=== PATIENT | male | born 1960 | race Caucasian/White ===

== ENCOUNTER 2025-01-06 00:58 | Emergency (ER) | payer OTHER ==
[2025-01-06 01:39] LABS: Basophils # (A) 0.1 k/uL (0-0.2); Basophils % (A) 1 %; Eosinophils # (A) 0.4 k/uL (0-0.7); Eosinophils % (A) 5 %; HCT 38.6 % (39.0-53.0); HGB 12.3 gm/dL (13.0-17.5); Lymphocytes # (A) 2.4 k/uL (1.0-4.8); Lymphocytes % (A) 35 %; MCH 31.2 pg (25.0-35.0); MCHC 31.9 g/dL (31.0-37.0); MCV 97.9 fL (80.0-100.0); Monocytes # (A) 0.3 k/uL (0-1.0); Monocytes % (A) 5 %; Neutrophils # (A) 3.8 k/uL (1.3-7.7); Neutrophils % (A) 54 %; Platelet Count 164 k/uL (150-450); RBC 3.94 m/uL (4.30-5.90); RDW 13.5 % (11.5-15.5)
--- NOTE | 2025-01-06 02:20 | ED ---
Altered Mental Status HPI - General Chief Complaint: Altered Mental Status Stated Complaint: Detox Time Seen by Provider: 01/06/25 02:08 Source: EMS, RN notes reviewed, old records reviewed Mode of arrival: EMS Limitations: no limitations - History of Present Illness Initial Comments: This is a 64-year-old male to the ER for evaluation today. Patient presents today for evaluation regards to some altered mental status and confusion noted for being evaluated from [facility] for possible worsening confusion, going to alcohol intoxication MD Complaint: altered mental status, confusion -: hour(s) Severity: moderate Consistency of Symptoms: getting worse Context: alcohol abuse Associated Symptoms: denies other symptoms Treatments Prior to Arrival: IV fluid - Related Data Home Medications Medication Instructions Recorded Confirmed Albuterol Sulfate [Ventolin HFA] 2 puff INHALATION RT-Q4H PRN 01/08/25 01/08/25 Atorvastatin [Lipitor] 20 mg PO HS 01/08/25 01/08/25 Calcium Phos/D3/Magnesium/Zinc 1 tab PO TID PRN 01/08/25 01/08/25 [Npnkjbb-Ccs-Weyp-Vitamin D3] Chlorpheniramine Maleate 4 mg PO Q4H PRN 01/08/25 01/08/25 [Chlor-Trimeton] Fluticasone/Umeclidin/Vilanter 1 puff INHALATION RT-DAILY 01/08/25 01/08/25 [Trelegy Ellipta 100-62.5-25] Ibuprofen [Motrin Ib] 600 mg PO Q6H PRN 01/08/25 01/08/25 LORazepam [Ativan] 1 - 2 mg PO Q4H PRN 01/08/25 01/08/25 Loperamide HCl [Imodium A-D] 4 mg PO QID PRN 01/08/25 01/08/25 Mag Hydrox/Aluminum Hyd/Simeth 30 ml PO Q4H PRN 01/08/25 01/08/25 [Mylanta Maximum Strength Liq] Methadone HCl [Methadone Intensol] 90 mg PO DAILY 01/08/25 01/08/25 Mirtazapine [Remeron] 45 mg PO HS 01/08/25 01/08/25 Multivitamins, Thera [Multivitamin 1 tab PO DAILY 01/08/25 01/08/25 (formulary)] Tamsulosin [Flomax] 0.4 mg PO DAILY 01/08/25 01/08/25 Thiamine [Vitamin B-1] 100 mg PO DAILY 01/08/25 01/08/25 Venlafaxine HCl ER [Effexor XR] 150 mg PO DAILY 01/08/25 01/08/25 cloNIDine HCL [Catapres] 0.1 - 0.3 mg PO Q4H PRN 01/08/25 01/08/25 lisinopriL [Zestril] 10 mg PO DAILY 01/08/25 01/08/25 ondansetron HCL [Zofran] 8 mg PO Q6H PRN 01/08/25 01/08/25 Previous Rx's Medication Instructions Recorded Acetaminophen Tab [Tylenol] 650 mg PO Q6HR PRN tab 01/11/25 Azithromycin [Zithromax Z Pack] 1 tab PO DIRECTED #6 tab 01/11/25 Gabapentin [Neurontin] 600 mg PO TID #18 cap 01/11/25 Ipratropium-Albuterol Nebulize 3 ml INHALATION RT-QID PRN each 01/11/25 [Duoneb 0.5 mg-3 mg/3 ml Soln] Pantoprazole [Protonix] 40 mg PO AC-BRKFST #30 tab 01/11/25 Triamcinolone 0.5% Cream [Kenalog 1 applic TOPICAL BID #1 tub 01/11/25 0.5% Cream] predniSONE See Taper PO DIRECTED #30 tab 01/11/25 Allergies Allergy/AdvReac Type Severity Reaction Status Date / Time iodine Allergy Itching Verified 01/08/25 10:28 Review of Systems ROS Statement: Those systems with pertinent positive or pertinent negative responses have been documented in the HPI. ROS Other: All systems not noted in ROS Statement are negative. Past Medical History Past Medical History: COPD History of Any Multi-Drug Resistant Organisms: MRSA Past Surgical History: No Surgical Hx Reported Past Psychological History: Bipolar Smoking Status: Light tobacco smoker Past Alcohol Use History: Abuse, Daily Past Drug Use History: Cocaine, Heroin, Opiates General Exam Limitations: altered mental status General appearance: alert, in no apparent distress, appears intoxicated Head exam: Present: atraumatic, normocephalic, normal inspection Eye exam: Present: normal appearance, PERRL, EOMI. Absent: scleral icterus, conjunctival injection, periorbital swelling ENT exam: Present: normal exam, mucous membranes moist Neck exam: Present: normal inspection. Absent: tenderness, meningismus, lymph adenopathy Respiratory exam: Present: normal lung sounds bilaterally. Absent: respiratory distress, wheezes, rales, rhonchi, stridor Cardiovascular Exam: Present: regular rate, normal rhythm, normal heart sounds. Absent: systolic murmur, diastolic murmur, rubs, gallop, clicks GI/Abdominal exam: Present: soft, normal bowel sounds. Absent: distended, tenderness, guarding, rebound, rigid Extremities exam: Present: normal inspection, full ROM, normal capillary refill. Absent: tenderness, pedal edema, joint swelling, calf tenderness Back exam: Present: normal inspection Neurological exam: Present: alert, oriented X3, CN II-XII intact Psychiatric exam: Present: normal affect, normal mood Skin exam: Present: warm, dry, intact, normal color. Absent: rash Course Vital Signs 01/06/25 01/06/25 01:03 04:46 Temperature 98.2 F 98.3 F Pulse Rate 104 H 88 Respiratory 18 20 Rate Blood Pressure 122/80 118/73 O2 Sat by Pulse 100 97 Oximetry - Reevaluation(s) Reevaluation #1: 01/06/25 04:41 Records reviewed Reevaluation #2: 01/06/25 04:42 Patient symptoms are unchanged but he has no complaints here in the ER sleeping and resting comfortably showing no signs of DTs Reevaluation #3: 01/06/25 04:42 Patient informed of results and questions answered Reevaluation #4: Was pt. sent in by a medical professional or institution (, PA, GROUNDS MAINTENANCE SUPERVISOR, urgent care, hospital, or intermediate...) When possible be specific @ -no Did you speak to anyone other than the patient for history (EMS, parent, family, police, friend...)? What history was obtained from this source @ -no Did you review nursing and triage notes (agree or disagree)? Why? @ -agree Are old charts reviewed (outside hosp., previous admission, EMS record, old EKG, old radiological studies, urgent care reports/EKG's, intermediate records)? Report findings @ -yes Differential Diagnosis (chest pain, altered mental status, abdominal pain women, abdominal pain men, vaginal bleeding, weakness, fever, dyspnea, syncope, headache, dizziness, GI bleed, back pain, seizure, CVA, palpatations, mental health, musculoskeletal)? @ -prior EKG interpreted by me (3pts min.). @ -no X-rays interpreted by me (1pt min.). @ -no CT interpreted by me (1pt min.). @ -no U/S interpreted by me (1pt. min.). @ -no What testing was considered but not performed or refused? (CT, X-rays, U/S, labs)? Why? @ -none What meds were considered but not given or refused? Why? @ -none Did you discuss the management of the patient with other professionals (professionals i.e. , PA, GROUNDS MAINTENANCE SUPERVISOR, lab, RT, psych nurse, social media executive, application packager, teacher, flight communications officer, shelter case manager)? Give summary @ -no Was smoking cessation discussed for >3mins.? @ -no Was critical care preformed (if so, how long)? @ -no Were there social determinants of health that impacted care today? How? (Homelessness, low income, unemployed, alcoholism, drug addiction, transportation, low edu. Level, literacy, decrease access to med. care, shelter, rehab)? @ -none Was there de-escalation of care discussed even if they declined (Discuss DNR or withdrawal of care, Hospice)? DNR status @ -no What co-morbidities impacted this encounter? (DM, HTN, Smoking, COPD, CAD, Cancer, CVA, ARF, Chemo, Hep., AIDS, mental health diagnosis, sleep apnea, morbid obesity)? @ -none Was patient admitted / discharged? Hospital course, mention meds given and route, prescriptions, significant lab abnormalities, going to OR and other pertinent info. @ - 64 male to ER for evaluation of altered mental status with concern for alcohol withdrawal DTs. Patient shows no signs of withdrawal here in the ER resting comfortably sleeping and able to answer questions appropriately, patient okay for transfer back to [facility] Transfer back to [facility] Undiagnosed new problem with uncertain prognosis? @ -no Drug Therapy requiring intensive monitoring for toxicity (Heparin, Nitro, Insulin, Cardizem)? @ -no Were any procedures done? @ -no Diagnosis/symptom? @ -Alcohol withdrawal Acute, or Chronic, or Acute on Chronic? @ -Acute Uncomplicated (without systemic symptoms) or Complicated (systemic symptoms)? @ -Complicated Side effects of treatment? @ -no Exacerbation, Progression, or Severe Exacerbation? @ -exacerbation Poses a threat to life or bodily function? How? (Chest pain, USA, ID, pneumonia, PE, COPD, DKA, ARF, appy, cholecystitis, CVA, Diverticulitis, Homicidal, Suicidal, threat to staff... and all critical care pts) @ -yes withdrawal symptoms Medical Decision Making - Medical Decision Making 64 male to ER for evaluation of altered mental status with concern for alcohol withdrawal DTs. Patient shows no signs of withdrawal here in the ER resting comfortably sleeping and able to answer questions appropriately, patient okay for transfer back to [facility] - Lab Data Result diagrams: 01/06/25 01:01/06/25 01:31 Lab Results 01/06/25 01/06/25 01/06/25 Range/Units 01:31 01:31 01:31 WBC 7.0 (3.8-10.6) k/uL RBC 3.94 L (4.30-5.90) m/uL Hgb 12.3 L (13.0-17.5) gm/dL Hct 38.6 L (39.0-53.0) % MCV 97.9 (80.0-100.0) fL MCH 31.2 (25.0-35.0) pg MCHC 31.9 (31.0-37.0) g/dL RDW 13.5 (11.5-15.5) % Plt Count 164 (150-450) k/uL MPV 8.0 Neutrophils % 54 % Lymphocytes % 35 % Monocytes % 5 % Eosinophils % 5 % Basophils % 1 % Neutrophils # 3.8 (1.3-7.7) k/uL Lymphocytes # 2.4 (1.0-4.8) k/uL Monocytes # 0.3 (0-1.0) k/uL Eosinophils # 0.4 (0-0.7) k/uL Basophils # 0.1 (0-0.2) k/uL Sodium 142 (137-145) mmol/L Potassium 4.2 (3.5-5.1) mmol/L Chloride 109 H (98-107) mmol/L Carbon Dioxide 25 (22-30) mmol/L Anion Gap 8 mmol/L BUN 25 H (9-20) mg/dL Creatinine 0.72 (0.66-1.25) mg/dL Est GFR (CKD-EPI)AfAm >90 (>60 ml/min/1.73 sqM) Est GFR (CKD-EPI)NonAf >90 (>60 ml/min/1.73 sqM) Glucose 117 H (74-99) mg/dL Calcium 8.9 (8.4-10.2) mg/dL Phosphorus 3.4 (2.5-4.5) mg/dL Magnesium 2.3 (1.6-2.3) mg/dL Total Bilirubin 0.4 (0.2-1.3) mg/dL AST 28 (17-59) U/L ALT 25 (4-49) U/L Alkaline Phosphatase 157 H (38-126) U/L Total Protein 6.5 (6.3-8.2) g/dL Albumin 3.8 (3.5-5.0) g/dL Serum Alcohol <10 mg/dL Disposition Clinical Impression: Altered mental status, Delirium due to general medical condition, Alcohol abuse Disposition: HOME SELF-CARE Condition: Good Instructions (If sedation given, give patient instructions): Altered Mental Status (ED) Is patient prescribed a controlled substance at d/c from ED?: No Referrals: None,Stated [Primary Care Provider] - 1-2 days Time of Disposition: 04:20
[2025-01-06 02:29] LABS: ALT 25 U/L (4-49); AST 28 U/L (17-59); African American GFR (CKD) >90 (>60 ml/min/1.73 sqM); Albumin 3.8 g/dL (3.5-5.0); Alcohol <10 mg/dL; Alkaline Phosphatase 157 U/L (38-126); Anion Gap 8 mmol/L; Blood Urea Nitrogen 25 mg/dL (9-20); Calcium 8.9 mg/dL (8.4-10.2); Carbon Dioxide 25 mmol/L (22-30); Chloride 109 mmol/L (98-107); Glucose 117 mg/dL (74-99); Non-African American GFR(CKD) >90 (>60 ml/min/1.73 sqM); Potassium 4.2 mmol/L (3.5-5.1); Sodium 142 mmol/L (137-145); Total Bilirubin 0.4 mg/dL (0.2-1.3); Total Protein 6.5 g/dL (6.3-8.2)
[2025-01-06 04:29] LABS: Magnesium 2.3 mg/dL (1.6-2.3); Phosphorus 3.4 mg/dL (2.5-4.5)
[2025-01-06 04:48] VITALS: BP 118/73; PULSE 88; RESP 20; TEMP 98.3
== END 2025-01-06 04:46 | disposition home or self-care (01) ==
LOC: EC 00:58
DX: R41.82 Altered mental status, unspecified (principal); F05 Delirium due to known physiological condition; F10.139 Alcohol abuse with withdrawal, unspecified; Y90.0 Blood alcohol level of less than 20 mg/100 ml; F17.200 Nicotine dependence, unspecified, uncomplicated; Z91.041 Radiographic dye allergy status
CPT/HCPCS: 36415; 80053; 83735; 84100; 85025; 99285; G0480; 80320

== ENCOUNTER 2025-01-08 10:21 | Inpatient (IN) | payer OTHER ==
[2025-01-08 11:33] LABS: VBG PH 7.45 (7.31-7.41)
[2025-01-08 11:47] LABS: ALT 21 U/L (4-49); African American GFR (CKD) >90 (>60 ml/min/1.73 sqM); Albumin 3.7 g/dL (3.5-5.0); Anion Gap 7 mmol/L; Blood Urea Nitrogen 19 mg/dL (9-20); Calcium 8.7 mg/dL (8.4-10.2); Carbon Dioxide 30 mmol/L (22-30); Chloride 103 mmol/L (98-107); Glucose 92 mg/dL (74-99); Non-African American GFR(CKD) >90 (>60 ml/min/1.73 sqM); Sodium 140 mmol/L (137-145); Total Bilirubin 0.5 mg/dL (0.2-1.3); Total Protein 6.5 g/dL (6.3-8.2)
--- NOTE | 2025-01-08 11:49 | XR ---
EXAMINATION TYPE: XR chest 2V DATE OF EXAM: 01/08/2025 11:17 AM COMPARISON: None. CLINICAL INDICATION: Male, 64 years old with history of difficulty breathing, TECHNIQUE: XR chest 2V view(s) obtained. FINDINGS: The heart size is normal. The pulmonary vasculature is normal. The lungs are clear. IMPRESSION: 1. No acute pulmonary process. [facility], , 01/08/2025 11:47 AM
[2025-01-08 11:50] LABS: INR 0.9 (<1.2); Partial Thromboplastin Time 23.4 sec (22.0-30.0); Prothrombin Time 10.5 sec (10.0-12.5)
[2025-01-08 11:51] LABS: Potassium 4.5 mmol/L (3.5-5.1)
[2025-01-08 11:52] LABS: AST 32 U/L (17-59); Alkaline Phosphatase 98 U/L (38-126); Magnesium 2.2 mg/dL (1.6-2.3)
[2025-01-08 11:59] LABS: Influenza A Not Detected (Not Detectd); Influenza B Not Detected (Not Detectd); RSV Not Detected (Not Detectd)
[2025-01-08 12:29] LABS: Basophils % (A) 1 %; Eosinophils # (A) 0.2 k/uL (0-0.7); Eosinophils % (A) 4 %; HCT 36.4 % (39.0-53.0); Lymphocytes # (A) 1.4 k/uL (1.0-4.8); Lymphocytes % (A) 20 %; MCH 32.1 pg (25.0-35.0); MCHC 32.9 g/dL (31.0-37.0); MCV 97.5 fL (80.0-100.0); Mean Platelet Volume 8.7; Monocytes # (A) 0.3 k/uL (0-1.0); Monocytes % (A) 4 %; Neutrophils % (A) 71 %; Platelet Count 145 k/uL (150-450); RBC 3.74 m/uL (4.30-5.90); RDW 13.8 % (11.5-15.5); WBC 7.1 k/uL (3.8-10.6)
[2025-01-08] MEDS: IPRATROPIUM-ALBUTEROL 3 ML NEB INHALATION STA (15:14)
--- NOTE | 2025-01-08 15:23 | ED ---
SOB HPI - General Chief Complaint: Shortness of Breath Stated Complaint: JAMES Time Seen by Provider: 01/08/25 10:30 Source: EMS Mode of arrival: EMS Limitations: no limitations - History of Present Illness Initial Comments: 64-year-old male with past medical Struve COPD who presents emergency department with shortness of breath. Patient presented to the nurse at [place] with shortness of breath and altered mental status. Patient seemed to have decreased mentation. His oxygen was falling into the 80s. Admits to having history of COPD. He is not oxygen dependent. Does use inhalers. Patient admits to coughing and congestion. Denies heart problems. No fevers. Patient denies any chest pain. No lower extremity edema. He was given a DuoNebs breathing treatment as well as no butyryl treatment on the way into the hospital. No other alleviating, precipitating or modifying factors - Related Data Home Medications Medication Instructions Recorded Confirmed Albuterol Sulfate [Ventolin HFA] 2 puff INHALATION RT-Q4H PRN 01/08/25 01/08/25 Atorvastatin [Lipitor] 20 mg PO HS 01/08/25 01/08/25 Calcium Phos/D3/Magnesium/Zinc 1 tab PO TID PRN 01/08/25 01/08/25 [Fmkluhy-Pxa-Ygxy-Vitamin D3] Chlorpheniramine Maleate 4 mg PO Q4H PRN 01/08/25 01/08/25 [Chlor-Trimeton] Fluticasone/Umeclidin/Vilanter 1 puff INHALATION RT-DAILY 01/08/25 01/08/25 [Trelegy Ellipta 100-62.5-25] Ibuprofen [Motrin Ib] 600 mg PO Q6H PRN 01/08/25 01/08/25 LORazepam [Ativan] 1 - 2 mg PO Q4H PRN 01/08/25 01/08/25 Loperamide HCl [Imodium A-D] 4 mg PO QID PRN 01/08/25 01/08/25 Mag Hydrox/Aluminum Hyd/Simeth 30 ml PO Q4H PRN 01/08/25 01/08/25 [Mylanta Maximum Strength Liq] Methadone HCl [Methadone Intensol] 90 mg PO DAILY 01/08/25 01/08/25 Mirtazapine [Remeron] 45 mg PO HS 01/08/25 01/08/25 Multivitamins, Thera [Multivitamin 1 tab PO DAILY 01/08/25 01/08/25 (formulary)] Tamsulosin [Flomax] 0.4 mg PO DAILY 01/08/25 01/08/25 Thiamine [Vitamin B-1] 100 mg PO DAILY 01/08/25 01/08/25 Venlafaxine HCl ER [Effexor XR] 150 mg PO DAILY 01/08/25 01/08/25 cloNIDine HCL [Catapres] 0.1 - 0.3 mg PO Q4H PRN 01/08/25 01/08/25 lisinopriL [Zestril] 10 mg PO DAILY 01/08/25 01/08/25 ondansetron HCL [Zofran] 8 mg PO Q6H PRN 01/08/25 01/08/25 Previous Rx's Medication Instructions Recorded Acetaminophen Tab [Tylenol] 650 mg PO Q6HR PRN tab 01/11/25 Azithromycin [Zithromax Z Pack] 1 tab PO DIRECTED #6 tab 01/11/25 Gabapentin [Neurontin] 600 mg PO TID #18 cap 01/11/25 Ipratropium-Albuterol Nebulize 3 ml INHALATION RT-QID PRN each 01/11/25 [Duoneb 0.5 mg-3 mg/3 ml Soln] Pantoprazole [Protonix] 40 mg PO AC-BRKFST #30 tab 01/11/25 Triamcinolone 0.5% Cream [Kenalog 1 applic TOPICAL BID #1 tub 01/11/25 0.5% Cream] predniSONE See Taper PO DIRECTED #30 tab 01/11/25 Allergies Allergy/AdvReac Type Severity Reaction Status Date / Time iodine Allergy Itching Verified 01/08/25 10:28 Review of Systems ROS Statement: Those systems with pertinent positive or pertinent negative responses have been documented in the HPI. ROS Other: All systems not noted in ROS Statement are negative. Past Medical History Past Medical History: COPD History of Any Multi-Drug Resistant Organisms: MRSA Past Surgical History: No Surgical Hx Reported Past Psychological History: Bipolar Smoking Status: Light tobacco smoker Past Alcohol Use History: Abuse, Daily Past Drug Use History: Cocaine, Heroin, Opiates General Exam Limitations: altered mental status General appearance: lethargic, other (Easily falls asleep during my exam) Head exam: Present: atraumatic, normocephalic, normal inspection Eye exam: Present: normal appearance, EOMI. Absent: scleral icterus, conjunctival injection, periorbital swelling Pupils: Present: miosis ENT exam: Present: normal exam, mucous membranes moist Neck exam: Present: normal inspection. Absent: tenderness, meningismus, lymphadenopathy Respiratory exam: Present: wheezes, other (Tachypnea) Cardiovascular Exam: Present: normal rhythm, tachycardia Neurological exam: Present: altered (Patient fatigued and falls asleep during my exam. Must be repetitively woken up) Psychiatric exam: Present: flat affect Skin exam: Present: warm, dry, intact, normal color. Absent: rash Course Vital Signs 01/08/25 01/08/25 01/08/25 10:24 10:39 11:28 Temperature 98 F Pulse Rate 103 H 97 Respiratory 28 H 20 Rate Blood Pressure 134/88 142/83 O2 Sat by Pulse 93 L 95 93 L Oximetry 01/08/25 01/08/25 01/08/25 13:40 14:48 15:14 Temperature Pulse Rate 92 96 92 Respiratory 20 20 Rate Blood Pressure 125/80 123/83 O2 Sat by Pulse 95 94 L Oximetry 01/08/25 01/08/25 01/08/25 15:26 17:00 19:43 Temperature Pulse Rate 94 96 103 H Respiratory 20 20 Rate Blood Pressure 139/82 O2 Sat by Pulse 94 L Oximetry 01/08/25 01/08/25 01/09/25 19:50 23:11 00:43 Temperature Pulse Rate 101 H 103 H 100 Respiratory 20 22 18 Rate Blood Pressure 136/101 O2 Sat by Pulse 94 L Oximetry 01/09/25 01/09/25 01/09/25 00:51 01:00 04:15 Temperature Pulse Rate 101 H 105 H 101 H Respiratory 18 22 22 Rate Blood Pressure 133/77 136/60 O2 Sat by Pulse 92 L 97 Oximetry 01/09/25 01/09/25 01/09/25 04:17 04:23 06:45 Temperature Pulse Rate 105 H 117 H 112 H Respiratory 18 18 22 Rate Blood Pressure 125/81 O2 Sat by Pulse 97 Oximetry 01/09/25 01/09/25 01/09/25 08:06 08:12 08:22 Temperature Pulse Rate 111 H 111 H 124 H Respiratory 18 18 19 Rate Blood Pressure 159/91 O2 Sat by Pulse 96 Oximetry 01/09/25 01/09/25 01/09/25 10:25 11:24 11:41 Temperature 98.0 F Pulse Rate 128 H 128 H 122 H Respiratory 16 16 18 Rate Blood Pressure 156/83 127/72 O2 Sat by Pulse 96 95 Oximetry 01/09/25 01/09/25 01/09/25 11:49 14:24 15:23 Temperature 97.9 F Pulse Rate 121 H 121 H 107 H Respiratory 18 14 18 Rate Blood Pressure 142/92 O2 Sat by Pulse 95 Oximetry 01/09/25 01/09/25 01/09/25 15:33 17:06 18:27 Temperature 98.1 F Pulse Rate 106 H 102 H 100 Respiratory 18 16 14 Rate Blood Pressure 121/74 110/75 O2 Sat by Pulse 95 95 Oximetry 01/09/25 01/09/25 01/09/25 19:42 19:51 21:44 Temperature Pulse Rate 96 101 H 86 Respiratory 18 18 18 Rate Blood Pressure 118/82 O2 Sat by Pulse 99 Oximetry Medical Decision Making - Medical Decision Making Was pt. sent in by a medical professional or institution (, PA, TOOLING INSPECTOR, urgent care, hospital, or longterm...) When possible be specific @ -Patient sent in from [place] Did you speak to anyone other than the patient for history (EMS, parent, family, police, friend...)? What history was obtained from this source @ -Spoke with EMS for history Did you review nursing and triage notes (agree or disagree)? Why? @ -I reviewed and agree with nursing and triage notes Were old charts reviewed (outside hosp., previous admission, EMS record, old EKG, old radiological studies, urgent care reports/EKG's, longterm records)? Report findings @ -I reviewed the paperwork that came with the patient from [place] Differential Diagnosis (chest pain, altered mental status, abdominal pain women, abdominal pain men, vaginal bleeding, weakness, fever, dyspnea, syncope, headache, dizziness, GI bleed, back pain, seizure, CVA, palpatations, mental health, musculoskeletal)? @ -Differential Dyspnea: Coronary syndrome, arrhythmia, tamponade, asthma, COPD, pulmonary embolism, pneumonia, pneumothorax, pulmonary effusion, anaphylaxis, diabetic ketoacidosis, flailed chest, pulmonary contusion, diaphragmatic rupture, anemia, neurom uscular, this is not meant to be an all-inclusive list. Differential Altered Mental Status: Hypoglycemia, DKA, hypercapnia, ETOH, overdose, CO poisoning, trauma, myxedema coma, HTN encephalopathy, infection, encephalitis, psychosis, intercranial hemorrhage, hepatic encephalopathy, meningitis, CVA, this is not meant to be an all-inclusive list EKG interpreted by me (3pts min.). @ -Yes and demonstrates sinus rhythm with rate of 95. AK interval 147. QRS 83. QTc of 425. No acute ST segment elevations or depressions X-rays interpreted by me (1pt min.). @ -Yes and demonstrates no acute process CT interpreted by me (1pt min.). @ -None done U/S interpreted by me (1pt. min.). @ -None done What testing was considered but not performed or refused? (CT, X-rays, U/S, labs)? Why? @ -None What meds were considered but not given or refused? Why? @ -None Did you discuss the management of the patient with other professionals (professionals i.e. , PA, TOOLING INSPECTOR, lab, RT, psych nurse, clinical social work therapist, site inspector, teacher, commercial credit officer, child welfare caseworker)? Give summary @ -Spoke with Dung argu[facility] for admission Was smoking cessation discussed for >3mins.? @ -No Was critical care preformed (if so, how long)? @ -No Were there social determinants of health that impacted care today? How? (Homelessness, low income, unemployed, alcoholism, drug addiction, transportation, low edu. Level, literacy, decrease access to med. care, usp, rehab)? @ -Patient currently in rehab with decreased access to care Was there de-escalation of care discussed even if they declined (Discuss DNR or withdrawal of care, Hospice)? DNR status @ -No What co-morbidities impacted this encounter? (DM, HTN, Smoking, COPD, CAD, Cancer, CVA, ARF, Chemo, Hep., AIDS, mental health diagnosis, sleep apnea, morbid obesity)? @ -Polysubstance abuse, COPD Was patient admitted / discharged? Hospital course, mention meds given and route, prescriptions, significant lab abnormalities, going to OR and other pertinent info. @ -Upon arrival patient seen and evaluated in room 3. Thorough history and physical exam was performed. Patient is able to answer questions appropriately however he falls asleep easily during my exam. He does have wheezing appreciated. IV was established and laboratory studies are conducted. Chest x- ray was performed. Results are discussed with the patient. I do feel the patient should be admitted due to his decreased mental status with increased work of breathing. Patient was agreeable to this. Spoke with Dung argu[facility] for admission I will place pulmonology on consult. Breathing treatments and steroids are ordered for the patient Undiagnosed new problem with uncertain prognosis? @ -No Drug Therapy requiring intensive monitoring for toxicity (Heparin, Nitro, Insulin, Cardizem)? @ -No Were any procedures done? @ -No Diagnosis/symptom? @ -Acute encephalopathy, acute respiratory insufficiency, acute COPD exacerbation, history of polysubstance abuse on methadone Acute, or Chronic, or Acute on Chronic? @ -Acute on chronic Uncomplicated (without systemic symptoms) or Complicated (systemic symptoms)? @ -Complicated Side effects of treatment? @ -No Exacerbation, Progression, or Severe Exacerbation? @ -Yes Poses a threat to life or bodily function? How? (Chest pain, [place], [place], pneumonia, PE, COPD, DKA, ARF, appy, cholecystitis, CVA, Diverticulitis, Homicidal, Suicidal, threat to staff... and all critical care pts) @ -Yes this patient has increased work of breathing - Lab Data Result diagrams: 01/10/25 06:47 01/10/25 06:47 Lab Results 01/08/25 01/08/25 01/08/25 Range/Units 10:56 11:10 11:15 WBC 7.1 (3.8-10.6) k/uL RBC 3.74 L (4.30-5.90) m/uL Hgb 12.0 L (13.0-17.5) gm/dL Hct 36.4 L (39.0-53.0) % MCV 97.5 (80.0-100.0) fL MCH 32.1 (25.0-35.0) pg MCHC 32.9 (31.0-37.0) g/dL RDW 13.8 (11.5-15.5) % Plt Count 145 L (150-450) k/uL MPV 8.7 Neutrophils % 71 % Lymphocytes % 20 % Monocytes % 4 % Eosinophils % 4 % Basophils % 1 % Neutrophils # 5.0 (1.3-7.7) k/uL Lymphocytes # 1.4 (1.0-4.8) k/uL Monocytes # 0.3 (0-1.0) k/uL Eosinophils # 0.2 (0-0.7) k/uL Basophils # 0.0 (0-0.2) k/uL PT (10.0-12.5) sec INR (<1.2) APTT (22.0-30.0) sec VBG pH 7.45 H (7.31-7.41) VBG pCO2 43 (37-51) mmHg VBG HCO3 30 H (24-28) mmol/L Sodium (137-145) mmol/L Potassium (3.5-5.1) mmol/L Chloride (98-107) mmol/L Carbon Dioxide (22-30) mmol/L Anion Gap mmol/L BUN (9-20) mg/dL Creatinine (0.66-1.25) mg/dL Est GFR (CKD-EPI)AfAm (>60 ml/min/1.73 sqM) Est GFR (CKD-EPI)NonAf (>60 ml/min/1.73 sqM) Glucose (74-99) mg/dL Plasma Lactic Acid [place] (0.7-2.0) mmol/L Calcium (8.4-10.2) mg/dL Magnesium (1.6-2.3) mg/dL Total Bilirubin (0.2-1.3) mg/dL AST (17-59) U/L ALT (4-49) U/L Alkaline Phosphatase (38-126) U/L Troponin I (0.000-0.034) ng/mL Total Protein (6.3-8.2) g/dL Albumin (3.5-5.0) g/dL Urine Color Urine Appearance (Clear) Urine pH (5.0-8.0) Ur Specific Prentice (1.001-1.035) Urine Protein (Negative) Urine Glucose (UA) (Negative) Urine Ketones (Negative) Urine Blood (Negative) Urine Nitrite (Negative) Urine Bilirubin (Negative) Urine Urobilinogen (<2.0) mg/dL Ur Leukocyte Esterase (Negative) Influenza Type A (PCR) Not Detected (Not Detectd) Influenza Type B (PCR) Not Detected (Not Detectd) RSV (PCR) Not Detected (Not Detectd) SARS-CoV-2 (PCR) Not Detected (Not Detectd) 01/08/25 01/08/25 01/08/25 Range/Units 11:15 11:15 11:15 WBC (3.8-10.6) k/uL RBC (4.30-5.90) m/uL Hgb (13.0-17.5) gm/dL Hct (39.0-53.0) % MCV (80.0-100.0) fL MCH (25.0-35.0) pg MCHC (31.0-37.0) g/dL RDW (11.5-15.5) % Plt Count (150-450) k/uL MPV Neutrophils % % Lymphocytes % % Monocytes % % Eosinophils % % Basophils % % Neutrophils # (1.3-7.7) k/uL Lymphocytes # (1.0-4.8) k/uL Monocytes # (0-1.0) k/uL Eosinophils # (0-0.7) k/uL Basophils # (0-0.2) k/uL PT 10.5 (10.0-12.5) sec INR 0.9 (<1.2) APTT 23.4 (22.0-30.0) sec VBG pH (7.31-7.41) VBG pCO2 (37-51) mmHg VBG HCO3 (24-28) mmol/L Sodium 140 (137-145) mmol/L Potassium 4.5 (3.5-5.1) mmol/L Chloride 103 (98-107) mmol/L Carbon Dioxide 30 (22-30) mmol/L Anion Gap 7 mmol/L BUN 19 (9-20) mg/dL Creatinine 0.71 (0.66-1.25) mg/dL Est GFR (CKD-EPI)AfAm >90 (>60 ml/min/1.73 sqM) Est GFR (CKD-EPI)NonAf >90 (>60 ml/min/1.73 sqM) Glucose 92 (74-99) mg/dL Plasma Lactic Acid Kingston 1.3 (0.7-2.0) mmol/L Calcium 8.7 (8.4-10.2) mg/dL Magnesium 2.2 (1.6-2.3) mg/dL Total Bilirubin 0.5 (0.2-1.3) mg/dL AST 32 (17-59) U/L ALT 21 (4-49) U/L Alkaline Phosphatase 98 (38-126) U/L Troponin I (0.000-0.034) ng/mL Total Protein 6.5 (6.3-8.2) g/dL Albumin 3.7 (3.5-5.0) g/dL Urine Color Urine Appearance (Clear) Urine pH (5.0-8.0) Ur Specific Prentice (1.001-1.035) Urine Protein (Negative) Urine Glucose (UA) (Negative) Urine Ketones (Negative) Urine Blood (Negative) Urine Nitrite (Negative) Urine Bilirubin (Negative) Urine Urobilinogen (<2.0) mg/dL Ur Leukocyte Esterase (Negative) Influenza Type A (PCR) (Not Detectd) Influenza Type B (PCR) (Not Detectd) RSV (PCR) (Not Detectd) SARS-CoV-2 (PCR) (Not Detectd) 01/08/25 01/08/25 Range/Units 11:15 14:50 WBC (3.8-10.6) k/uL RBC (4.30-5.90) m/uL Hgb (13.0-17.5) gm/dL Hct (39.0-53.0) % MCV (80.0-100.0) fL MCH (25.0-35.0) pg MCHC (31.0-37.0) g/dL RDW (11.5-15.5) % Plt Count (150-450) k/uL MPV Neutrophils % % Lymphocytes % % Monocytes % % Eosinophils % % Basophils % % Neutrophils # (1.3-7.7) k/uL Lymphocytes # (1.0-4.8) k/uL Monocytes # (0-1.0) k/uL Eosinophils # (0-0.7) k/uL Basophils # (0-0.2) k/uL PT (10.0-12.5) sec INR (<1.2) APTT (22.0-30.0) sec VBG pH (7.31-7.41) VBG pCO2 (37-51) mmHg VBG HCO3 (24-28) mmol/L Sodium (137-145) mmol/L Potassium (3.5-5.1) mmol/L Chloride (98-107) mmol/L Carbon Dioxide (22-30) mmol/L Anion Gap mmol/L BUN (9-20) mg/dL Creatinine (0.66-1.25) mg/dL Est GFR (CKD-EPI)AfAm (>60 ml/min/1.73 sqM) Est GFR (CKD-EPI)NonAf (>60 ml/min/1.73 sqM) Glucose (74-99) mg/dL Plasma Lactic Acid Kingston (0.7-2.0) mmol/L Calcium (8.4-10.2) mg/dL Magnesium (1.6-2.3) mg/dL Total Bilirubin (0.2-1.3) mg/dL AST (17-59) U/L ALT (4-49) U/L Alkaline Phosphatase (38-126) U/L Troponin I <0.012 (0.000-0.034) ng/mL Total Protein (6.3-8.2) g/dL Albumin (3.5-5.0) g/dL Urine Color Colorless Urine Appearance Clear (Clear) Urine pH 8.0 (5.0-8.0) Ur Specific Prentice 1.014 (1.001-1.035) Urine Protein Negative (Negative) Urine Glucose (UA) Negative (Negative) Urine Ketones Negative (Negative) Urine Blood Negative (Negative) Urine Nitrite Negative (Negative) Urine Bilirubin Negative (Negative) Urine Urobilinogen <2.0 (<2.0) mg/dL Ur Leukocyte Esterase Negative (Negative) Influenza Type A (PCR) (Not Detectd) Influenza Type B (PCR) (Not Detectd) RSV (PCR) (Not Detectd) SARS-CoV-2 (PCR) (Not Detectd) Disposition Clinical Impression: Acute encephalopathy, COPD with acute exacerbation, Hypoxia Disposition: ADMITTED IP TO THIS HOSP Condition: Stable Is patient prescribed a controlled substance at d/c from ED?: No Time of Disposition: 15:23 Decision to Admit Reason: Admit from EC Decision Date: 01/08/25 Decision Time: 15:23
[2025-01-08] MEDS ORDERED: NALOXONE 0.4 MG/ML 1 ML VIAL IV PRN (15:25)
[2025-01-08 15:29] LABS: Appearance,Urine Clear (Clear); Bilirubin,Urine Negative (Negative); Blood,Urine Negative (Negative); Color,Urine Colorless; Glucose,Urine (UA) Negative (Negative); Ketones,Urine Negative (Negative); Leukocyte Esterase,Urine Negative (Negative); Nitrite,Urine Negative (Negative); Protein,Urine Negative (Negative); Specific Gravity,Urine 1.014 (1.001-1.035); Urobilinogen,Urine <2.0 mg/dL (<2.0)
[2025-01-08] MEDS ORDERED: diphenhydrAMINE 25 MG CAP PO PRN (15:30)
[2025-01-08] MEDS: methylPREDNISolone SOD SUCCI 125 MG/2 ML VIAL IV STA (15:44)
[2025-01-08] MEDS: GABAPENTIN 300 MG CAP PO SCH (15:45)
[2025-01-08] MEDS ORDERED: LORazepam 1 MG TAB PO PRN (17:09)
[2025-01-08] MEDS ORDERED: LORazepam 0.5 MG TAB PO PRN (17:09)
[2025-01-08] MEDS ORDERED: IPRATROPIUM-ALBUTEROL 3 ML NEB INHALATION PRN (17:28)
[2025-01-08 17:39] LABS: ABG Base Excess 6.4 mmol/L; ABG HCO3 32 mmol/L (21-25); ABG Oxygen Saturation 90.4 % (94-97); ABG PCO2 49 mmHg (35-45); ABG PH 7.42 (7.35-7.45); ABG TCO2 33 mmol/L (19-24); Allen Test Performed? Yes
[2025-01-08 17:46] LABS: ABG PO2 59 mmHg (83-108)
[2025-01-08 17:52] LABS: Alcohol <10 mg/dL; Phosphorus 3.3 mg/dL (2.5-4.5)
--- NOTE | 2025-01-08 18:01 | P.HPIM ---
History of Present Illness H&P Date: 01/08/25 History of present illness; 62-year-old man with PMH of COPD, hypertension, hyperlipidemia, BPH, history of alcohol abuse presents emergency department from [place] with worsening shortness of breath. Patient appears to have decreased mentation, however appears to be similar to his baseline. His oxygen saturation was falling into the 80%, and has a known history of COPD however is not oxygen dependent. He does utilize inhalers. He admits to having worsening chest congestion and productive cough which she states began yesterday, and is progressively gotten worse. He endorses having his most recent drink yesterday, however there are conflicting reports as to if this is accurate. Notes a history of using fentanyl, heroin, cocaine as well as opioids - however denies any recent use of any of these drugs. He denies any history of heart problems, chest pain, fevers, lower extremity edema. When seen at bedside today, he was in some distress, with generalized difficulty with his breathing. Additionally noted nonpitting edema of his bilateral hands. Labratory review: -WBC 7.1, hemoglobin 12.0, hematocrit 36.4, platelet 145; sodium 140, potassium 4.5, bicarb 30, BUN 19, creatinine 0.71, lactic acid 1.3, calcium 8.7, magnesium 2.2, total bilirubin 0.5, AST 32, ALT 21, 11 phosphatase 98; troponin <0.012 -UA negative -Respiratory viral panel all negative Imaging: -Chest x-ray done in the ER shows no acute cardiopulmonary process -EKG done in the ER showed heart rate of 95, in sinus rhythm Vitals: On arrival: Blood pressure 142/83, heart rate 97, respiratory 20, SpO2 93% on 4 L nasal cannula Currently: Blood pressure 123/83, heart rate 96, respiratory rate 20, SpO2 94% on 4 L nasal cannula Patient admitted to internal medicine service REVIEW OF SYSTEMS: Pertinent positives and negatives noted in HPI. The rest of the 14-point review of systems is negative. Physical Exam: General: In some distress Derm: warm, dry, intact Head: atraumatic, normocephalic, symmetric Eyes: EOMI, anicteric sclera Cardiovascular: S1 S2 reg, no murmur, rubs, or gallops Lungs: Inspiratory wheezing bilateral rhonchi Abdominal: soft, non-tender to palpataion, no appreciable organomegaly Extremities: Nonpitting edema noted in bilateral hands; scabbed wounds on right conley Neuro: Alert, Oriented, CNII-XII grossly intact, gait normal Psych: well appearing, appropriate affect Assessment and plan 62-year-old man with PMH of COPD presents emergency department from [place] with worsening shortness of breath and altered mental status. #Acute on chronic hypoxic respiratory failure, with known nonoxygen dependent COPD #Possible COPD exacerbation -Continues to utilize 4 L nasal cannula -Wean oxygen as tolerated maintain oxygen saturation >90% percent -Continue with DuoNeb every 4 hours and 40 mg Solu-Medrol every 8 hour -Additional DuoNeb 4 times daily as needed -Resume home Trelegy -Repeat chest x-ray in the a.m. #History of alcohol abuse #Normocytic anemia - Give daily thiamine and folic acid and multivitamin - seizure and fall precautions - CIWA protocol, hold Ativan for now (along with other sedating medications) - Urine drug screen ordered - Phosphorus 3.3 - Serum alcohol <10 - monitor daily electrolytes - cardiac monitoring #Thrombocytopenia, possibly reactive -Platelet 145 on arrival -Continue to monitor CBC #History of opiate abuse -Hold home methadone Chronic: #Hypertension #Hyperlipidemia #Benign prostatic hyperplasia #Insomnia -Resume home medication GI prophylaxis: Lovenox 40 mg subcu DVT prophylaxis: Protonix 40 mg daily The patient is admitted with an anticipated more than than 2 midnight stay for evaluation of CODE STATUS: Full code Discussed with: Patient Anticipated discharge place: Pending clinical course Dictation was produced using [employer] dictation software. please excuse any grammatical, word or spelling errors. I have seen and evaluated the patient today. Discussed with the resident and agree with the residents finding and plan as documented in the resident's note. Changes highlighted in blue font. Past Medical History Past Medical History: COPD History of Any Multi-Drug Resistant Organisms: MRSA Past Surgical History: No Surgical Hx Reported Past Psychological History: Bipolar Smoking Status: Light tobacco smoker Past Alcohol Use History: Abuse, Daily Past Drug Use History: Cocaine, Heroin, Opiates Medications and Allergies Home Medications Medication Instructions Recorded Confirmed Type Albuterol Sulfate [Ventolin HFA] 2 puff INHALATION RT-Q4H PRN 01/08/25 01/08/25 History Atorvastatin [Lipitor] 20 mg PO HS 01/08/25 01/08/25 History Calcium Phos/D3/Magnesium/Zinc 1 tab PO TID PRN 01/08/25 01/08/25 History [Iveixzs-Gqo-Jftr-Vitamin D3] Chlorpheniramine Maleate 4 mg PO Q4H PRN 01/08/25 01/08/25 History [Chlor-Trimeton] Fluticasone/Umeclidin/Vilanter 1 puff INHALATION RT-DAILY 01/08/25 01/08/25 History [Trelegy Ellipta 100-62.5-25] Gabapentin [Neurontin] 300 mg PO TID 01/08/25 01/08/25 History Ibuprofen [Motrin Ib] 600 mg PO Q6H PRN 01/08/25 01/08/25 History LORazepam [Ativan] 1 - 2 mg PO Q4H PRN 01/08/25 01/08/25 History Loperamide HCl [Imodium A-D] 4 mg PO QID PRN 01/08/25 01/08/25 History Mag Hydrox/Aluminum Hyd/Simeth 30 ml PO Q4H PRN 01/08/25 01/08/25 History [Mylanta Maximum Strength Liq] Methadone HCl [Methadone Intensol] 90 mg PO DAILY 01/08/25 01/08/25 History Mirtazapine [Remeron] 45 mg PO HS 01/08/25 01/08/25 History Multivitamins, Thera [Multivitamin 1 tab PO DAILY 01/08/25 01/08/25 History (formulary)] Tamsulosin [Flomax] 0.4 mg PO DAILY 01/08/25 01/08/25 History Thiamine [Vitamin B-1] 100 mg PO DAILY 01/08/25 01/08/25 History Venlafaxine HCl ER [Effexor Xr] 150 mg PO DAILY 01/08/25 01/08/25 History cloNIDine HCL [Catapres] 0.1 - 0.3 mg PO Q4H PRN 01/08/25 01/08/25 History lisinopriL [Zestril] 10 mg PO DAILY 01/08/25 01/08/25 History ondansetron HCL [Ondansetron HCl] 8 mg PO Q6H PRN 01/08/25 01/08/25 History Allergies Allergy/AdvReac Type Severity Reaction Status Date / Time iodine Allergy Itching Verified 01/08/25 10:28 Physical Exam Vitals: Vital Signs Temp Pulse Resp BP Pulse Ox 01/08/25 15:26 94 01/08/25 15:14 92 01/08/25 14:48 96 20 123/83 94 L 01/08/25 13:40 92 20 125/80 95 01/08/25 11:28 97 20 142/83 93 L 01/08/25 10:39 95 01/08/25 10:24 98 F 103 H 28 H 134/88 93 L Intake and Output 01/08/25 01/08/25 01/08/25 06:59 14:59 22:59 Other: Weight 84.822 kg Results CBC & Chem 7: 01/08/25 11:15 01/08/25 11:15 Labs: Abnormal Lab Results - Last 24 Hours (Table) 01/08/25 01/08/25 Range/Units 11:10 11:15 RBC 3.74 L (4.30-5.90) m/uL Hgb 12.0 L (13.0-17.5) gm/dL Hct 36.4 L (39.0-53.0) % Plt Count 145 L (150-450) k/uL VBG pH 7.45 H (7.31-7.41) VBG HCO3 30 H (24-28) mmol/L
[2025-01-08] MEDS: IPRATROPIUM-ALBUTEROL 3 ML NEB INHALATION SCH (19:43)
[2025-01-08] MEDS ORDERED: MIRTAZAPINE 45 MG TABLET PO SCH (21:00)
[2025-01-08] MEDS: ATORVASTATIN 20 MG TAB PO SCH (22:05)
[2025-01-08] MEDS: ACETAMINOPHEN TAB 325 MG TAB PO PRN (22:05)
[2025-01-09 01:41] LABS: Amphetamine Screen,Urine Not Detected (NotDetected); Barbiturate Screen,Urine Not Detected (NotDetected); Benzodiazepines Screen,Urine Detected (NotDetected); Cocaine Screen,Urine Not Detected (NotDetected); Methadone Screen, Urine Detected (NotDetected); Opiate Screen,Urine Not Detected (NotDetected); Oxycodone Screen, Urine Not Detected (NotDetected); Phencyclidine Screen,Urine Not Detected (NotDetected); Tricyclic Antidepressant,Urine Not Detected (NotDetected); Urn Cannabinoid Scrn Not Detected (NotDetected)
[2025-01-09] MEDS: SYMBICORT 160-4.5 MCG INHALER INHALATION SCH (08:04)
[2025-01-09] MEDS: PANTOPRAZOLE 40 MG TABLET PO SCH (08:14)
[2025-01-09] MEDS: methylPREDNISolone SOD SUCCI 40 MG/ML 1 ML VIAL IV SCH (08:14)
--- NOTE | 2025-01-09 08:35 | XR ---
EXAMINATION TYPE: XR chest 1V portable DATE OF EXAM: 01/09/2025 6:13 AM COMPARISON: None. CLINICAL INDICATION: Male, 64 years old with history of COPD, TECHNIQUE: XR chest 1V portable view(s) obtained. FINDINGS: The heart size is normal. The pulmonary vasculature is normal. The lungs are clear. IMPRESSION: 1. No acute pulmonary process. [facility], , 01/09/2025 8:32 AM
[2025-01-09 08:39] LABS: Basophils % (A) 0 %; Eosinophils # (A) 0.2 k/uL (0-0.7); Eosinophils % (A) 1 %; HCT 40.3 % (39.0-53.0); HGB 12.7 gm/dL (13.0-17.5); Hypochromasia Slight; Lymphocytes % (A) 7 %; MCH 31.2 pg (25.0-35.0); MCHC 31.4 g/dL (31.0-37.0); MCV 99.3 fL (80.0-100.0); Mean Platelet Volume 8.7; Monocytes # (A) 0.2 k/uL (0-1.0); Monocytes % (A) 2 %; Neutrophils # (A) 11.9 k/uL (1.3-7.7); Neutrophils % (A) 89 %; Platelet Count 188 k/uL (150-450); RBC 4.06 m/uL (4.30-5.90); RDW 13.1 % (11.5-15.5); WBC 13.3 k/uL (3.8-10.6)
[2025-01-09 08:44] LABS: African American GFR (CKD) >90 (>60 ml/min/1.73 sqM); Anion Gap 6 mmol/L; Blood Urea Nitrogen 17 mg/dL (9-20); Calcium 8.9 mg/dL (8.4-10.2); Carbon Dioxide 29 mmol/L (22-30); Chloride 104 mmol/L (98-107); Glucose 129 mg/dL (74-99); Non-African American GFR(CKD) >90 (>60 ml/min/1.73 sqM); Potassium 4.5 mmol/L (3.5-5.1); Sodium 139 mmol/L (137-145)
[2025-01-09] MEDS ORDERED: METHADONE 10 MG TAB PO SCH (09:00)
[2025-01-09] MEDS ORDERED: LORazepam 1 MG TAB PO PRN (09:54)
[2025-01-09] MEDS: MULTIVITAMINS, THERA 1 EACH TAB PO SCH (10:22)
[2025-01-09] MEDS: TAMSULOSIN 0.4 MG CAP.ER.24H PO SCH (10:22)
[2025-01-09] MEDS: THIAMINE 100 MG TAB PO SCH (10:22)
[2025-01-09] MEDS: lisinopriL 10 MG TAB PO SCH (10:22)
[2025-01-09] MEDS: ENOXAPARIN 40 MG/0.4 ML SYRINGE SQ SCH (10:23)
[2025-01-09] MEDS: GABAPENTIN 300 MG CAP PO SCH (11:19)
[2025-01-09] MEDS: FOLIC ACID 1 MG TAB PO SCH (11:20)
[2025-01-09] MEDS: METHADONE 10 MG TAB PO SCH (11:20)
[2025-01-09] MEDS: VENLAFAXINE HCL ER 150 MG CAP PO SCH (11:20)
--- NOTE | 2025-01-09 14:18 | P.PN ---
Subjective Progress Note Date: 01/09/25 62-year-old man with PMH of COPD, hypertension, hyperlipidemia, BPH, history of alcohol abuse presents emergency department from [place] with worsening shortness of breath. Patient appears to have decreased mentation, however appears to be similar to his baseline. His oxygen saturation was falling into the 80%, and has a known history of COPD however is not oxygen dependent. He does utilize inhalers. He admits to having worsening chest congestion and productive cough which she states began yesterday, and is progressively gotten worse. He endorses having his most recent drink yesterday, however there are conflicting reports as to if this is accurate. Notes a history of using fentanyl, heroin, cocaine as well as opioids - however denies any recent use of any of these drugs. He denies any history of heart problems, chest pain, fevers, lower extremity edema. When seen at bedside today, he was in some distress, with generalized difficulty with his breathing. Additionally noted nonpitting edema of his bilateral hands. 01/09/25 - Patient seen and examined at bedside this morning, remaining in the ED. No acute events overnight. Held all sedating medications yesterday due to the patient's seemingly altered mentation, however unclear if this is too dissimilar from his baseline. As of this morning he had been continuing to utilize 4 L nasal cannula while saturating 97%, however was taken off supplemental oxygen and has continued to saturate in the high 90%'s. Beginning late last night he began to become tachycardic and has remained so into this morning. Additionally, CBC significant for WBC 13.3, hemoglobin 12.7. Per the nurse, he was a CIWA of 6 this morning. Additionally, feels as though he may be withdrawing due to his long history of methadone use as well as polysubstance abuse. Home methadone will be restarted. REVIEW OF SYSTEMS: Pertinent positives and negatives noted in HPI. Physical Exam: General: In some distress Derm: warm, dry, intact Head: atraumatic, normocephalic, symmetric Eyes: EOMI, anicteric sclera Cardiovascular: S1 S2 reg, no murmur, rubs, or gallops Lungs: CTA bilaterally Abdominal: soft, non-tender to palpataion, no appreciable organomegaly Extremities: Improving nonpitting edema in the bilateral hands; scabbed wounds on right conley Neuro: Alert, Oriented, CNII-XII grossly intact, gait normal Psych: well appearing, appropriate affect Data Received Today: Labs: WBC 13.3, hemoglobin 12.7 hematocrit 40.3, platelet 188; sodium 139, potassium 4.5, bicarb 29, BUN 17, creatinine 0.62, calcium 8.9 Imagining: -Chest x-ray showed no acute cardiopulmonary process Assessment and plan 62-year-old man with PMH of COPD presents emergency department from [place] with worsening shortness of breath and altered mental status. #Acute on chronic hypoxic respiratory failure, with known nonoxygen dependent COPD #Possible COPD exacerbation #Leukocytosis, possibly reactive to steroids #SIRS criteria met -Currently on room air saturating 96% -Continue with DuoNeb every 4 hours and 40 mg Solu-Medrol every 8 hour -Additional DuoNeb 4 times daily as needed -Resume home Trelegy -Procalcitonin ordered #History of alcohol abuse #Normocytic anemia - Give daily thiamine and folic acid and multivitamin - seizure and fall precautions - CIWA protocol with oral Ativan - Urine drug screen positive for methadone and cocaine - Phosphorus 3.3 - Serum alcohol <10 - monitor daily electrolytes - cardiac monitoring #Thrombocytopenia, possibly reactive -Platelet 145 on arrival -Continue to monitor CBC #History of opiate abuse -Resume home methadone Chronic: #Hypertension #Hyperlipidemia #Benign prostatic hyperplasia #Insomnia -Resume home medication GI prophylaxis: Lovenox 40 mg subcu DVT prophylaxis: Protonix 40 mg daily Code status: Full code F: None E: Replete as needed N: Heart healthy diet A: Ambulatory Anticipated discharge place: Pending clinical course Anticipated discharge time: Pending clinical course Dictation was produced using [employer] dictation software. please excuse any grammatical, word or spelling errors. I have seen and evaluated the patient today. Discussed with the resident and agree with the residents finding and plan as documented in the resident's note. Changes highlighted in blue font. Objective - Vital Signs Vital signs: Vital Signs Temp 98 F 01/08/25 10:24 Pulse 112 H 01/09/25 06:45 Resp 22 01/09/25 06:45 BP 125/81 01/09/25 06:45 Pulse Ox 97 01/09/25 06:45 FiO2 Intake & Output 01/08/25 01/09/25 01/09/25 18:59 06:59 18:59 Weight 84.822 kg - Labs CBC & Chem 7: 01/09/25 08:20 01/09/25 08:20 Labs: Abnormal Lab Results - Last 24 Hours (Table) 01/08/25 01/08/25 01/08/25 Range/Units 11:10 11:15 17:34 RBC 3.74 L (4.30-5.90) m/uL Hgb 12.0 L (13.0-17.5) gm/dL Hct 36.4 L (39.0-53.0) % Plt Count 145 L (150-450) k/uL ABG pCO2 49 H (35-45) mmHg ABG pO2 59 L* (83-108) mmHg ABG HCO3 32 H (21-25) mmol/L ABG Total CO2 33 H (19-24) mmol/L ABG O2 Saturation 90.4 L (94-97) % VBG pH 7.45 H (7.31-7.41) VBG HCO3 30 H (24-28) mmol/L Hemoglobin 11.8 L (13.0-17.5) gm/dL Urine Methadone Screen (NotDetected) U Benzodiazepines Scrn (NotDetected) 01/09/25 Range/Units 01:05 RBC (4.30-5.90) m/uL Hgb (13.0-17.5) gm/dL Hct (39.0-53.0) % Plt Count (150-450) k/uL ABG pCO2 (35-45) mmHg ABG pO2 (83-108) mmHg ABG HCO3 (21-25) mmol/L ABG Total CO2 (19-24) mmol/L ABG O2 Saturation (94-97) % VBG pH (7.31-7.41) VBG HCO3 (24-28) mmol/L Hemoglobin (13.0-17.5) gm/dL Urine Methadone Screen Detected H (NotDetected) U Benzodiazepines Scrn Detected H (NotDetected)
[2025-01-09] MEDS: METOPROLOL TARTRATE 25 MG TAB PO STA (14:46)
[2025-01-09] MEDS: LORazepam 0.5 MG TAB PO PRN (14:54)
--- NOTE | 2025-01-09 15:08 | P.CNPUL ---
History of Present Illness Consult date: 01/08/25 Reason for consult: COPD History of present illness: This is a 65-year-old male patient, presented to the emerged part because of shortness of breath. The patient is known to have COPD. The patient was at [place] where he was undergoing alcohol rehabilitation and he experienced worsening shortness of breath and some altered mentation in addition. He was hypoxic and his pulse ox was in the 80s. Typically is not oxygen dependent. He has some increased cough and congestion and based on that, the patient was transferred to the hospital for further evaluation. The patient is currently on 4 L of oxygen by nasal cannula with pulse ox of 94%. The blood work revealed a white cell count of 7 with a hemoglobin 12 and platelet count of 145. Normal coagulation profile. Sodium is at 140, serum bicarbonate 30 with a BUN of 19 and a creatinine of 0.7. Lactic acid level is at 1.3. LFTs are normal. Troponins are negative. UA is negative. Viral screen has been negative. The chest x-ray done in the emergency department showed COPD with increased pulmonary vascular markings bilaterally. No airspace disease. No acute process. Based on all this, the patient was hospitalized for an acute COPD exacerbation. Started on DuoNeb updrafts. Started on IV Solu-Medrol. Pulmonary consultation was requested. The patient has been maintained on Trelegy Ellipta on outpatient basis regarding his COPD. He also uses albuterol rescue inhaler. He is known to have hypertension, hyperlipidemia and BPH in addition to his COPD. Substance Review of Systems Constitutional: Denies chills, Denies fever Eyes: denies as per HPI, denies blurred vision, denies bulging eye, denies decreased vision, denies diplopia, denies discharge, denies dry eye, denies irritation, denies itching, denies pain, denies photophobia, denies loss of peripheral vision, denies loss of vision, denies tunnel vision/blind spots Ears: deny: decreased hearing, ear discharge, earache, tinnitus Breasts: absent: as per HPI, gynecomastia Cardiovascular: Reports as per HPI Respiratory: Reports cough, Reports dyspnea Gastrointestinal: Reports as per HPI Genitourinary: Reports as per HPI Musculoskeletal: Reports as per HPI Musculoskeletal: absent: ankle pain, ankle stiffness, ankle swelling, as per HPI, elbow pain, elbow stiffness, elbow swelling, foot pain, foot stiffness, foot swelling, hand pain, hand stiffness, hand swelling, hip pain, hip stiffness, hip swelling, knee pain, knee stiffness, knee swelling, shoulder pain, shoulder stiffness, shoulder swelling, wrist pain, wrist stiffness, wrist swelling Integumentary: Reports as per HPI Neurological: Reports change in mentation Psychiatric: Reports as per HPI Endocrine: Reports as per HPI Hematologic/Lymphatic: Reports as per HPI Allergic/Immunologic: Reports as per HPI Past Medical History Past Medical History: COPD, Hyperlipidemia, Hypertension, Prostate Disorder History of Any Multi-Drug Resistant Organisms: MRSA Past Surgical History: No Surgical Hx Reported Past Psychological History: Bipolar Smoking Status: Light tobacco smoker Past Alcohol Use History: Abuse, Daily Past Drug Use History: Cocaine, Heroin, Opiates Medications and Allergies Home Medications Medication Instructions Recorded Confirmed Type Albuterol Sulfate [Ventolin HFA] 2 puff INHALATION RT-Q4H PRN 01/08/25 01/08/25 History Atorvastatin [Lipitor] 20 mg PO HS 01/08/25 01/08/25 History Calcium Phos/D3/Magnesium/Zinc 1 tab PO TID PRN 01/08/25 01/08/25 History [Sbvvjkm-Dsl-Izmp-Vitamin D3] Chlorpheniramine Maleate 4 mg PO Q4H PRN 01/08/25 01/08/25 History [Chlor-Trimeton] Fluticasone/Umeclidin/Vilanter 1 puff INHALATION RT-DAILY 01/08/25 01/08/25 History [Trelegy Ellipta 100-62.5-25] Gabapentin [Neurontin] 300 mg PO TID 01/08/25 01/08/25 History Ibuprofen [Motrin Ib] 600 mg PO Q6H PRN 01/08/25 01/08/25 History LORazepam [Ativan] 1 - 2 mg PO Q4H PRN 01/08/25 01/08/25 History Loperamide HCl [Imodium A-D] 4 mg PO QID PRN 01/08/25 01/08/25 History Mag Hydrox/Aluminum Hyd/Simeth 30 ml PO Q4H PRN 01/08/25 01/08/25 History [Mylanta Maximum Strength Liq] Methadone HCl [Methadone Intensol] 90 mg PO DAILY 01/08/25 01/08/25 History Mirtazapine [Remeron] 45 mg PO HS 01/08/25 01/08/25 History Multivitamins, Thera [Multivitamin 1 tab PO DAILY 01/08/25 01/08/25 History (formulary)] Tamsulosin [Flomax] 0.4 mg PO DAILY 01/08/25 01/08/25 History Thiamine [Vitamin B-1] 100 mg PO DAILY 01/08/25 01/08/25 History Venlafaxine HCl ER [Effexor Xr] 150 mg PO DAILY 01/08/25 01/08/25 History cloNIDine HCL [Catapres] 0.1 - 0.3 mg PO Q4H PRN 01/08/25 01/08/25 History lisinopriL [Zestril] 10 mg PO DAILY 01/08/25 01/08/25 History ondansetron HCL [Ondansetron HCl] 8 mg PO Q6H PRN 01/08/25 01/08/25 History Allergies Allergy/AdvReac Type Severity Reaction Status Date / Time iodine Allergy Itching Verified 01/08/25 10:28 Physical Exam Vitals: Vital Signs Temp Pulse Resp BP Pulse Ox 01/08/25 15:26 94 01/08/25 15:14 92 01/08/25 14:48 96 20 123/83 94 L 01/08/25 13:40 92 20 125/80 95 01/08/25 11:28 97 20 142/83 93 L 01/08/25 10:39 95 01/08/25 10:24 98 F 103 H 28 H 134/88 93 L Intake and Output 01/08/25 01/08/25 01/08/25 06:59 14:59 22:59 Other: Weight 84.822 kg The patient appeared well nourished and normally developed. Vital signs as documented. The patient is currently on 4 L of oxygen by nasal cannula Head exam is unremarkable. No scleral icterus or corneal arcus noted. Neck is without jugular venous distension, thyromegaly, or carotid bruits. Carotid upstrokes are brisk bilaterally. Lungs are clear to auscultation and percussion. Cardiac exam reveals the PMI to be normally sized and situated. Rhythm is re gular. First and second heart sounds normal. No murmurs, rubs or gallops. Abdominal exam reveals normal bowel sounds, no masses, no organomegaly and no aortic enlargement. Extremities are nonedematous and both femoral and pedal pulses are normal. Examination of the skin revealed no evidence of significant rashes, suspicious appearing nevi or other concerning lesions. Neurologically, the patient is awake and alert and the patient does not have any focal neurological deficit. Cranial nerves are essentially intact. Results - Laboratory Findings CBC and BMP: 01/09/25 08:20 01/09/25 08:20 PT/INR, D-dimer PT 10.5 sec (10.0-12.5) 01/08/25 11:15 INR 0.9 (<1.2) 01/08/25 11:15 Abnormal lab findings: Abnormal Labs 01/08/25 01/08/25 11:10 11:15 RBC 3.74 L Hgb 12.0 L Hct 36.4 L Plt Count 145 L VBG pH 7.45 H VBG HCO3 30 H - Diagnostic Findings Chest x-ray: image reviewed Assessment and Plan Plan: Acute exacerbation of COPD. Chest x-ray shows no acute cardiopulmonary process. Viral screen has been negative. No evidence of any pneumonia. Patient is known to have COPD maintained on Trelegy Ellipta on outpatient basis in addition to albuterol HFA. Not oxygen dependent. Acute hypoxic respiratory failure, currently on 2 liters O2 by nasal cannula COPD, maintained on Trelegy , outpatient. Shortness of breath secondary to above Altered mentation probably related to a component of CO2 narcosis. Alcoholism, patient was admitted to [facility]. He drinls 12/23 VODKA and his last drink was 2 days ago Hypertension Hyperlipidemia BPH Former smoker and he quit in 2023 Chronic pain (back and neck) maintained on Methadone 90 mg daily Skin graft in the right foot (cantu bite) Kidney stone. Plan Titrate oxygen flow to maintain saturation above 90% obtain a blood gas and utilize BiPAP if there is significant respiratory acidosis Continue DuoNeb updrafts Continue IV Solu-Medrol Resume methadone Watch for any signs of delirium tremens. The patient will be placed on the CIWA protocol. Resume home medications Will continue to follow Time with Patient: Greater than 30
--- NOTE | 2025-01-09 15:12 | P.PN ---
Subjective Progress Note Date: 01/09/25 This is a 65-year-old male patient, presented to the emerged part because of sh ortness of breath. The patient is known to have COPD. The patient was at [place] where he was undergoing alcohol rehabilitation and he experienced worsening shortness of breath and some altered mentation in addition. He was hypoxic and his pulse ox was in the 80s. Typically is not oxygen dependent. He has some increased cough and congestion and based on that, the patient was transferred to the hospital for further evaluation. The patient is currently on 4 L of oxygen by nasal cannula with pulse ox of 94%. The blood work revealed a white cell count of 7 with a hemoglobin 12 and platelet count of 145. Normal coagulation profile. Sodium is at 140, serum bicarbonate 30 with a BUN of 19 and a creatinine of 0.7. Lactic acid level is at 1.3. LFTs are normal. Troponins are negative. UA is negative. Viral screen has been negative. The chest x-ray done in the emergency department showed COPD with increased pulmonary vascular markings bilaterally. No airspace disease. No acute process. Based on all this, the patient was hospitalized for an acute COPD exacerbation. Started on DuoNeb updrafts. Started on IV Solu-Medrol. Pulmonary consultation was requested. The patient has been maintained on Trelegy Ellipta on outpatient basis regarding his COPD. He also uses albuterol rescue inhaler. He is known to have hypertension, hyperlipidemia and BPH in addition to his COPD. Substance On 01/09/2025, the patient is being seen for a follow-up. The patient is feeling better compared to yesterday. The patient is less bronchospastic and wheezy. In fact, the patient was taken off the oxygen the patient is currently on room air oxygen. Less short of breath. Limited cough and sputum production. Noted the patient has COPD and has been maintained on Trelegy Ellipta on an outpatient basis. He was undergoing rehabilitation at [place] for alcohol. Denies having any signs of delirium tremens at this point in time. He drinks vodka on a daily basis in large quantities. He was placed on a CIWA protocol. He has issues with chronic pain, maintained on methadone. His blood gas from yesterday showed mild respiratory acidosis which is essentially compensated. His sodium levels at 139, potassium levels at 4.5, BUN is 17 with a creatinine of 0.6. Bicarb is at 29. WBC count 13.3 with hemoglobin 12.7 and a platelet count of 188. Objective - Vital Signs Vital signs: Vital Signs Temp 97.9 F 01/09/25 14:24 Pulse 121 H 01/09/25 14:24 Resp 14 01/09/25 14:24 BP 142/92 01/09/25 14:24 Pulse Ox 95 01/09/25 14:24 FiO2 Intake & Output 01/08/25 01/09/25 01/09/25 18:59 06:59 18:59 Weight 84.822 kg - Exam The patient appeared well nourished and normally developed. Vital signs as documented. The patient is currently on room air oxygen Head exam is unremarkable. No scleral icterus or corneal arcus noted. Neck is without jugular venous distension, thyromegaly, or carotid bruits. Carotid upstrokes are brisk bilaterally. Lungs are clear to auscultation and percussion. Cardiac exam reveals the PMI to be normally sized and situated. Rhythm is regular. First and second heart sounds normal. No murmurs, rubs or gallops. Abdominal exam reveals normal bowel sounds, no masses, no organomegaly and no aortic enlargement. Extremities are nonedematous and both femoral and pedal pulses are normal. Examination of the skin revealed no evidence of significant rashes, suspicious appearing nevi or other concerning lesions. Neurologically, the patient is awake and alert and the patient does not have any focal neurological deficit. Cranial nerves are essentially intact. - Labs CBC & Chem 7: 01/09/25 08:20 01/09/25 08:20 Labs: Abnormal Lab Results - Last 24 Hours (Table) 01/08/25 01/09/25 01/09/25 Range/Units 17:34 01:05 08:20 WBC 13.3 H (3.8-10.6) k/uL RBC 4.06 L (4.30-5.90) m/uL Hgb 12.7 L (13.0-17.5) gm/dL Neutrophils # 11.9 H (1.3-7.7) k/uL ABG pCO2 49 H (35-45) mmHg ABG pO2 59 L* (83-108) mmHg ABG HCO3 32 H (21-25) mmol/L ABG Total CO2 33 H (19-24) mmol/L ABG O2 Saturation 90.4 L (94-97) % Hemoglobin 11.8 L (13.0-17.5) gm/dL Creatinine (0.66-1.25) mg/dL Glucose (74-99) mg/dL Urine Methadone Screen Detected H (NotDetected) U Benzodiazepines Scrn Detected H (NotDetected) 01/09/25 Range/Units 08:20 WBC (3.8-10.6) k/uL RBC (4.30-5.90) m/uL Hgb (13.0-17.5) gm/dL Neutrophils # (1.3-7.7) k/uL ABG pCO2 (35-45) mmHg ABG pO2 (83-108) mmHg ABG HCO3 (21-25) mmol/L ABG Total CO2 (19-24) mmol/L ABG O2 Saturation (94-97) % Hemoglobin (13.0-17.5) gm/dL Creatinine 0.62 L (0.66-1.25) mg/dL Glucose 129 H (74-99) mg/dL Urine Methadone Screen (NotDetected) U Benzodiazepines Scrn (NotDetected) Assessment and Plan Plan: Acute exacerbation of COPD. Chest x-ray shows no acute cardiopulmonary process. Viral screen has been negative. No evidence of any pneumonia. Patient is known to have COPD maintained on Trelegy Ellipta on outpatient basis in addition to albuterol HFA. Not oxygen dependent. Clinically improving and the patient is currently on room air oxygen. No signs of any CO2 narcosis Acute hypoxic respiratory failure, improved and the patient is currently on room air oxygen COPD, maintained on Trelegy , outpatient. Shortness of breath secondary to above Altered mentation, improved Alcoholism, patient was admitted to [place]. He drinls 12/23 VODKA and his last drink was 2 days ago Hypertension Hyperlipidemia BPH Former smoker and he quit in 2023 Chronic pain (back and neck) maintained on Methadone 90 mg daily Skin graft in the right foot (cantu bite) Kidney stone. Plan Patient on room air oxygen Continue DuoNeb updrafts Continue IV Solu-Medrol Resume methadone Watch for any signs of delirium tremens. The patient will be placed on the CIWA protocol. Resume home medications Will continue to follow
[2025-01-10 07:29] LABS: African American GFR (CKD) >90 (>60 ml/min/1.73 sqM); Anion Gap 8 mmol/L; Blood Urea Nitrogen 22 mg/dL (9-20); Calcium 9.3 mg/dL (8.4-10.2); Carbon Dioxide 24 mmol/L (22-30); Chloride 106 mmol/L (98-107); Glucose 125 mg/dL (74-99); Non-African American GFR(CKD) >90 (>60 ml/min/1.73 sqM); Potassium 4.4 mmol/L (3.5-5.1); Sodium 138 mmol/L (137-145)
[2025-01-10 07:36] LABS: Basophils % (A) 0 %; Eosinophils # (A) 0.2 k/uL (0-0.7); Eosinophils % (A) 1 %; HCT 39.9 % (39.0-53.0); HGB 13.2 gm/dL (13.0-17.5); Lymphocytes # (A) 1.1 k/uL (1.0-4.8); Lymphocytes % (A) 7 %; MCH 32.1 pg (25.0-35.0); MCV 97.1 fL (80.0-100.0); Mean Platelet Volume 9.2; Monocytes # (A) 0.7 k/uL (0-1.0); Monocytes % (A) 4 %; Neutrophils # (A) 14.4 k/uL (1.3-7.7); Neutrophils % (A) 88 %; RBC 4.11 m/uL (4.30-5.90); RDW 13.8 % (11.5-15.5); WBC 16.5 k/uL (3.8-10.6)
[2025-01-10 08:01] LABS: Platelet Count 197 k/uL (150-450)
--- NOTE | 2025-01-10 13:58 | P.PN ---
Subjective Progress Note Date: 01/10/25 64 year old M with PMH of EtOH abuse, COPD, HLD, BPH, polysubstance abuse presents from [place] for shortness of breath and altered mentation. He has a roommate that tested positive for Flu. In the ED he underwent extensive evaluation. Blood pressure 142/83, heart rate 97, respiratory 20, SpO2 93% on 4 L nasal cannula. WBC 7.1, hemoglobin 12.0, hematocrit 36.4, platelet 145; sodium 140, potassium 4.5, bicarb 30, BUN 19, creatinine 0.71, lactic acid 1.3, calcium 8.7, magnesium 2.2, total bilirubin 0.5, AST 32, ALT 21, 11 phosphatase 98; troponin <0.012. UA neg. COVID/RSV/Flu neg. Admitted for further workup and management. Started on bronchodilators and SoluMedrol, Pulmonary consulted. Respiratory status improved. 01/10 Patient was seen and examined. He reports some tremors with outstretched hands. Breathing improved. Discussed with Dr. Paredes, still tight with wheezing, will monitor one more day. CBC and BMP significant for WBC 16.5, RBC 4.11, BUN 22, glu 125. General: non toxic, no distress, appears at stated age Derm: warm, dry Head: atraumatic, normocephalic, symmetric Eyes: EOMI, no lid lag, anicteric sclera Mouth: no lip lesion, mucus membranes moist Cardiovascular: S1S2 reg, no murmur, positive posterior tibial pulse bilateral, Lungs: Expiratory wheezing bilateral, no rhonchi, no rales , no accessory muscle use Abdominal: soft, nontender to palpation, no guarding, no appreciable organomegaly Ext: no gross muscle atrophy, no edema, no contractures Neuro: no focal neuro deficits Psych: Alert, oriented, appropriate affect Based on my assessment of this patient, this patient meets a high complexity level of care. Acute on chronic hypoxic respiratory failure due to COPD exacerbation with exposure to Flu: DuoNeb Q4H scheduled and QID PRN. Solumedrol 40 mg IV TID. Symbicort 2 INH BID. Supplemental O2 to maintain O2 sat > 92%. Telemetry monitoring. Pulmonary on board. History of alcohol and polysubstance abuse: CIWA protocol with Ativan PRN. Methadone 90 mg PO QD. Hypertension: Lisinopril 10 mg PO QD. Hyperlipidemia: Lipitor 20 mg PO QHS. Benign prostatic hyperplasia: Flomax 0.4 mg PO QD. CODE STATUS: FULL CODE DVT Prophylaxis: Lovenox. GI Prophylaxis: Protonix Designated medical POA if patient is not able to make medical decisions for themselves: I have reviewed the following outplacement consultant notes: Pulmonary I have reviewed the results of the following tests: CBC, BMP. I have ordered the following tests: I have discussed the care of this patient with the following independent historian: RN. I have independently interpreted the following test below: I have discussed the management of this patient with the following physician: Dr. Paredes. Objective - Vital Signs Vital signs: Vital Signs Temp 98.3 F 01/10/25 06:58 Pulse 72 01/10/25 09:33 Resp 16 01/10/25 06:58 BP 158/79 01/10/25 06:58 Pulse Ox 95 01/10/25 09:22 FiO2 Intake & Output 01/09/25 01/10/25 01/10/25 18:59 06:59 18:59 Intake Total 2637 Balance 2637 Weight 84.822 kg Intake: Oral 2637 Other: # Voids 5 - Labs CBC & Chem 7: 01/10/25 06:47 01/10/25 06:47 Labs: Abnormal Lab Results - Last 24 Hours (Table) 01/10/25 01/10/25 Range/Units 06:47 06:47 WBC 16.5 H (3.8-10.6) k/uL RBC 4.11 L (4.30-5.90) m/uL Neutrophils # 14.4 H (1.3-7.7) k/uL BUN 22 H (9-20) mg/dL Glucose 125 H (74-99) mg/dL
--- NOTE | 2025-01-10 14:55 | P.PN ---
Subjective Progress Note Date: 01/10/25 This is a 65-year-old male patient, presented to the emerged part because of sh ortness of breath. The patient is known to have COPD. The patient was at [facility] where he was undergoing alcohol rehabilitation and he experienced worsening shortness of breath and some altered mentation in addition. He was hypoxic and his pulse ox was in the 80s. Typically is not oxygen dependent. He has some increased cough and congestion and based on that, the patient was transferred to the hospital for further evaluation. The patient is currently on 4 L of oxygen by nasal cannula with pulse ox of 94%. The blood work revealed a white cell count of 7 with a hemoglobin 12 and platelet count of 145. Normal coagulation profile. Sodium is at 140, serum bicarbonate 30 with a BUN of 19 and a creatinine of 0.7. Lactic acid level is at 1.3. LFTs are normal. Troponins are negative. UA is negative. Viral screen has been negative. The chest x-ray done in the emergency department showed COPD with increased pulmonary vascular markings bilaterally. No airspace disease. No acute process. Based on all this, the patient was hospitalized for an acute COPD exacerbation. Started on DuoNeb updrafts. Started on IV Solu-Medrol. Pulmonary consultation was requested. The patient has been maintained on Trelegy Ellipta on outpatient basis regarding his COPD. He also uses albuterol rescue inhaler. He is known to have hypertension, hyperlipidemia and BPH in addition to his COPD. Substance On 01/09/2025, the patient is being seen for a follow-up. The patient is feeling better compared to yesterday. The patient is less bronchospastic and wheezy. In fact, the patient was taken off the oxygen the patient is currently on room air oxygen. Less short of breath. Limited cough and sputum production. Noted the patient has COPD and has been maintained on Trelegy Ellipta on an outpatient basis. He was undergoing rehabilitation at [facility] for alcohol. Denies having any signs of delirium tremens at this point in time. He drinks vodka on a daily basis in large quantities. He was placed on a CIWA protocol. He has issues with chronic pain, maintained on methadone. His blood gas from yesterday showed mild respiratory acidosis which is essentially compensated. His sodium levels at 139, potassium levels at 4.5, BUN is 17 with a creatinine of 0.6. Bicarb is at 29. WBC count 13.3 with hemoglobin 12.7 and a platelet count of 188. Today's evaluation of 01/10/2024, patient is doing much better compared to yesterday. No significant shortness of breath and the patient is recovering from acute CF exacerbation. No chest pain. No cough or sputum production. No signs of any CO2 narcosis. Pain is under adequate control with methadone. Remains on room air oxygen. Remains on bronchodilators. Remains on IV Solu- Medrol. No signs of any delirium tremens. The white cell count of 16.5 with a heme of 13.2 and a platelet count of 197. Electrolytes are normal, BUN is 22 with a creatinine of 0.6. Objective - Vital Signs Vital signs: Vital Signs Temp 98.3 F 01/10/25 06:58 Pulse 72 01/10/25 09:33 Resp 16 01/10/25 06:58 BP 158/79 01/10/25 06:58 Pulse Ox 95 01/10/25 09:22 FiO2 Intake & Output 01/09/25 01/10/25 01/10/25 18:59 06:59 18:59 Intake Total 2637 Balance 2637 Weight 84.822 kg Intake: Oral 2637 Other: # Voids 5 - Exam The patient appeared well nourished and normally developed. Vital signs as documented. The patient is currently on room air oxygen Head exam is unremarkable. No scleral icterus or corneal arcus noted. Neck is without jugular venous distension, thyromegaly, or carotid bruits. Carotid upstrokes are brisk bilaterally. Lungs are clear to auscultation and percussion. Cardiac exam reveals the PMI to be normally sized and situated. Rhythm is regular. First and second heart sounds normal. No murmurs, rubs or gallops. Abdominal exam reveals normal bowel sounds, no masses, no organomegaly and no aortic enlargement. Extremities are nonedematous and both femoral and pedal pulses are normal. Examination of the skin revealed no evidence of significant rashes, suspicious appearing nevi or other concerning lesions. Neurologically, the patient is awake and alert and the patient does not have any focal neurological deficit. Cranial nerves are essentially intact. - Labs CBC & Chem 7: 01/10/25 06:47 01/10/25 06:47 Labs: Abnormal Lab Results - Last 24 Hours (Table) 01/10/25 01/10/25 Range/Units 06:47 06:47 WBC 16.5 H (3.8-10.6) k/uL RBC 4.11 L (4.30-5.90) m/uL Neutrophils # 14.4 H (1.3-7.7) k/uL BUN 22 H (9-20) mg/dL Glucose 125 H (74-99) mg/dL Assessment and Plan Plan: Acute exacerbation of COPD. Chest x-ray shows no acute cardiopulmonary process. Viral screen has been negative. No evidence of any pneumonia. Patient is known to have COPD maintained on Trelegy Ellipta on outpatient basis in addition to albuterol HFA. Not oxygen dependent. Clinically improving and the patient is currently on room air oxygen. No signs of any CO2 narcosis Acute hypoxic respiratory failure, improved and the patient is currently on room air oxygen COPD, maintained on Trelegy , outpatient. Shortness of breath secondary to above Altered mentation, improved Alcoholism, patient was admitted to [place]. He drinls 12/23 VODKA and his last drink was 2 days ago Hypertension Hyperlipidemia BPH Former smoker and he quit in 2023 Chronic pain (back and neck) maintained on Methadone 90 mg daily Skin graft in the right foot (cantu bite) Kidney stone. Plan Clinically improving Patient on room air oxygen Continue DuRadhab updrajuan manuel Continue IV Solu-Medrol Resume methadone Watch for any signs of delirium tremens. The patient will be placed on the CIWA protocol. Resume home medications Will continue to follow Time with Patient: Greater than 30
[2025-01-10] MEDS: polyethylene glycoL 3350 17 GM POWD.PACK PO SCH (16:40)
[2025-01-10] MEDS: ONDANSETRON 4 MG TAB PO PRN (21:09)
[2025-01-10] MEDS: LORazepam 1 MG TAB PO PRN (21:09)
[2025-01-11 04:51] VITALS: RESP 16; TEMP 98.1
[2025-01-11 08:47] VITALS: BP 166/79
[2025-01-11] MEDS: IPRATROPIUM-ALBUTEROL 3 ML NEB INHALATION SCH (09:40)
[2025-01-11] MEDS: LORazepam 1 MG TAB PO PRN (10:22)
[2025-01-11 11:00] VITALS: PULSE 86
--- NOTE | 2025-01-11 12:46 | P.PN ---
Subjective Progress Note Date: 01/11/25 This is a 65-year-old male patient, presented to the emerged part because of shortness of breath. The patient is known to have COPD. The patient was at [facility] where he was undergoing alcohol rehabilitation and he experienced worsening shortness of breath and some altered mentation in addition. He was hypoxic and his pulse ox was in the 80s. Typically is not oxygen dependent. He has some increased cough and congestion and based on that, the patient was transferred to the hospital for further evaluation. The patient is currently on 4 L of oxygen by nasal cannula with pulse ox of 94%. The blood work revealed a white cell count of 7 with a hemoglobin 12 and platelet count of 145. Normal coagulation profile. Sodium is at 140, serum bicarbonate 30 with a BUN of 19 and a creatinine of 0.7. Lactic acid level is at 1.3. LFTs are normal. Troponins are negative. UA is negative. Viral screen has been negative. The chest x-ray done in the emergency department showed COPD with increased pulmonary vascular markings bilaterally. No airspace disease. No acute process. Based on all this, the patient was hospitalized for an acute COPD exacerbation. Started on DuoNeb updrafts. Started on IV Solu-Medrol. Pulmonary consultation was requested. The patient has been maintained on Trelegy Ellipta on outpatient basis regarding his COPD. He also uses albuterol rescue inhaler. He is known to have hypertension, hyperlipidemia and BPH in addition to his COPD. Substance On 01/09/2025, the patient is being seen for a follow-up. The patient is feeling better compared to yesterday. The patient is less bronchospastic and wheezy. In fact, the patient was taken off the oxygen the patient is currently on room air oxygen. Less short of breath. Limited cough and sputum production. Noted the patient has COPD and has been maintained on Trelegy Ellipta on an outpatient basis. He was undergoing rehabilitation at [facility] for alcohol. Denies having any signs of delirium tremens at this point in time. He drinks vodka on a daily basis in large quantities. He was placed on a CIWA protocol. He has issues with chronic pain, maintained on methadone. His blood gas from yesterday showed mild respiratory acidosis which is essentially compensated. His sodium levels at 139, potassium levels at 4.5, BUN is 17 with a creatinine of 0.6. Bicarb is at 29. WBC count 13.3 with hemoglobin 12.7 and a platelet count of 188. Today's evaluation of 01/10/2024, patient is doing much better compared to yesterday. No significant shortness of breath and the patient is recovering from acute CF exacerbation. No chest pain. No cough or sputum production. No signs of any CO2 narcosis. Pain is under adequate control with methadone. Remains on room air oxygen. Remains on bronchodilators. Remains on IV Solu- Medrol. No signs of any delirium tremens. The white cell count of 16.5 with a heme of 13.2 and a platelet count of 197. Electrolytes are normal, BUN is 22 with a creatinine of 0.6. The patient is seen today January 11, 2025 in follow-up on the regular medical floor. He is awake and alert in no acute distress. He is up ambulating in his room. He denies any worsening shortness of breath, cough or congestion. He is maintaining O2 saturations in the 90s on room air. He is afebrile. Hemodynamically stable. No new labs today. He is continued on DuoNeb inhala tions, Symbicort, Solu-Medrol. He remains on the CIWA protocol. He is continued on his methadone. Lovenox for DVT prophylaxis. Objective - Vital Signs Vital signs: Vital Signs Temp 98.1 F 01/11/25 06:50 Pulse 86 01/11/25 10:59 Resp 16 01/11/25 06:50 BP 166/79 01/11/25 06:50 Pulse Ox 94 L 01/11/25 10:59 FiO2 Intake & Output 01/10/25 01/11/25 01/11/25 18:59 06:59 18:59 Intake Total 2910 Balance 2910 Intake: Oral 2910 Other: # Voids 6 - Exam GENERAL EXAM: Alert, active, 64-year-old male, on room air, comfortable in no apparent distress. HEAD: Normocephalic. EYES: Normal reaction of pupils, equal size. NOSE: Clear with pink turbinates. THROAT: No erythema or exudates. NECK: No masses, no JVD. CHEST: No chest wall deformity. LUNGS: Equal air entry with no crackles, wheeze, rhonchi or dullness. CVS: S1 and S2 normal with no audible murmur, regular rhythm. ABDOMEN: No hepatosplenomegaly, normal bowel sounds, no guarding or rigidity. SPINE: No scoliosis or deformity SKIN: No rashes CENTRAL NERVOUS SYSTEM: No focal deficits, tone is normal in all 4 extremities. EXTREMITIES: There is no peripheral edema. No clubbing, no cyanosis. Peripheral pulses are intact. - Labs CBC & Chem 7: 01/10/25 06:47 01/10/25 06:47 Assessment and Plan Assessment: Acute exacerbation of COPD. Chest x-ray shows no acute cardiopulmonary process. Viral screen has been negative. No evidence of any pneumonia. Patient is known to have COPD maintained on Trelegy Ellipta on outpatient basis in addition to albuterol HFA. Not oxygen dependent. Acute hypoxic respiratory failure secondary to above, and the patient is currently on room air oxygen Altered mentation, improved Alcoholism, patient was admitted to [facility]. He drinks 2/5th VODKA and his last drink was 2 days ago Hypertension Hyperlipidemia BPH Former smoker and he quit in 2023 Chronic pain (back and neck) maintained on Methadone 90 mg daily Skin graft in the right foot (cantu bite) Kidney stone Plan: The patient was seen and evaluated Labs and medications reviewed Currently stable and on room air Cleared for discharge Continue his home pulmonary medications Complete a prednisone taper The plan is to return to [facility] for continued rehabilitation I have personally seen and examined the patient, performed the documentation and the assessment and plan as written. Number of minutes spent on the visit: 23 Dictation was produced using [employer] dictation software. Please excuse any grammatical, word or spelling errors.
[2025-01-11] MEDS ORDERED: GABAPENTIN 300 MG CAP PO SCH (16:00)
--- NOTE | 2025-01-11 16:35 | P.DS ---
Providers Date of admission: 01/08/25 15:26 Expected date of discharge: 01/11/25 Attending physician: Sergei Burt Consults: 01/08/25 15:25 Consult Physician Urgent Consulting Provider: Melissa Paredes Consult Reason/Comments: copd exacerbation Do you want consulting provider notified?: Yes Primary care physician: Stated None Hospital Course: 64 year old M with PMH of EtOH abuse, COPD, HLD, BPH, polysubstance abuse presents from [place] for shortness of breath and altered mentation. He has a roommate that tested positive for Flu. In the ED he underwent extensive evaluation. Blood pressure 142/83, heart rate 97, respiratory 20, SpO2 93% on 4 L nasal cannula. WBC 7.1, hemoglobin 12.0, hematocrit 36.4, platelet 145; sodium 140, potassium 4.5, bicarb 30, BUN 19, creatinine 0.71, lactic acid 1.3, calcium 8.7, magnesium 2.2, total bilirubin 0.5, AST 32, ALT 21, 11 phosphatase 98; troponin <0.012. UA neg. COVID/RSV/Flu neg. Admitted for further workup and wallace gemkaylah. Started on bronchodilators and SoluMedrol, Pulmonary consulted. Respiratory status improved. 01/10 Patient was seen and examined. He reports some tremors with outstretched hands. Breathing improved. Discussed with Dr. Paredes, still tight with wheezing, will monitor one more day. CBC and BMP significant for WBC 16.5, RBC 4.11, BUN 22, glu 125. 01/11 Patient was seen and examined. Feeling well. Breathing improved. Passed home O2 eval. Procal 0.05. Pulmonary cleared for discharge. Discharge Plan: Discharge back to [place]. Slow prednisone taper, Z-pack, DuoNeb PRN, Triamcinolone cream, Protonix sent to pharmacy. Follow up with PCP within 1-2 days of discharge. General: non toxic, no distress, appears at stated age Derm: warm, dry Head: atraumatic, normocephalic, symmetric Eyes: EOMI, no lid lag, anicteric sclera Mouth: no lip lesion, mucus membranes moist Cardiovascular: S1S2 reg, no murmur Lungs: Decreased BS bilateral, no rhonchi, no rales , no accessory muscle use Ext: no gross muscle atrophy, no edema, no contractures Neuro: no focal neuro deficits Psych: Alert, oriented, appropriate affect Discharge Diagnosis: Acute on chronic hypoxic respiratory failure due to COPD exacerbation with exposure to Flu History of alcohol and polysubstance abuse Hypertension Hyperlipidemia Benign prostatic hyperplasia Psoriasis This complex discharge took 35 minutes to complete. Patient Condition at Discharge: Stable Plan - Discharge Summary Discharge Rx Participant: No New Discharge Prescriptions: New Gabapentin [Neurontin] 600 mg PO TID #18 cap predniSONE See Taper PO DIRECTED #30 tab Azithromycin [Zithromax Z Pack] 1 tab PO DIRECTED #6 tab Ipratropium-Albuterol Nebulize [Duoneb 0.5 mg-3 mg/3 ml Soln] 3 ml INHALATION RT-QID PRN each PRN Reason: Shortness Of Breath Or Wheezing Triamcinolone 0.5% Cream [Kenalog 0.5% Cream] 1 applic TOPICAL BID #1 tub Pantoprazole [Protonix] 40 mg PO AC-BRKFST #30 tab Acetaminophen Tab [Tylenol] 650 mg PO Q6HR PRN tab PRN Reason: Mild Pain Or Fever > 100.5 Continue ondansetron HCL [Zofran] 8 mg PO Q6H PRN PRN Reason: Nausea And Vomiting Mag Hydrox/Aluminum Hyd/Simeth [Mylanta Maximum Strength Liq] 30 ml PO Q4H PRN PRN Reason: Gi Upset Loperamide HCl [Imodium A-D] 4 mg PO QID PRN PRN Reason: Loose Stool Ibuprofen [Motrin Ib] 600 mg PO Q6H PRN PRN Reason: Pain LORazepam [Ativan] 1 - 2 mg PO Q4H PRN PRN Reason: Anxiety/Withdrawal Calcium Phos/D3/Magnesium/Zinc [Xnmfgdw-Tuw-Dedo-Vitamin D3] 1 tab PO TID PRN PRN Reason: Supplement Albuterol Sulfate [Ventolin HFA] 2 puff INHALATION RT-Q4H PRN PRN Reason: Shortness Of Breath Venlafaxine HCl ER [Effexor XR] 150 mg PO DAILY Tamsulosin [Flomax] 0.4 mg PO DAILY Mirtazapine [Remeron] 45 mg PO HS Thiamine [Vitamin B-1] 100 mg PO DAILY Multivitamins, Thera [Multivitamin (formulary)] 1 tab PO DAILY cloNIDine HCL [Catapres] 0.1 - 0.3 mg PO Q4H PRN PRN Reason: BP >160-100 Chlorpheniramine Maleate [Chlor-Trimeton] 4 mg PO Q4H PRN PRN Reason: Allergy Symptoms Fluticasone/Umeclidin/Vilanter [Trelegy Ellipta 100-62.5-25] 1 puff INHALATION RT-DAILY lisinopriL [Zestril] 10 mg PO DAILY Atorvastatin [Lipitor] 20 mg PO HS Methadone HCl [Methadone Intensol] 90 mg PO DAILY Discontinued Gabapentin [Neurontin] 300 mg PO TID Discharge Medication List Albuterol Sulfate [Ventolin HFA] 2 puff INHALATION RT-Q4H PRN 01/08/25 [History] Atorvastatin [Lipitor] 20 mg PO HS 01/08/25 [History] Calcium Phos/D3/Magnesium/Zinc [Kvahpno-Tll-Wevu-Vitamin D3] 1 tab PO TID PRN 01/08/25 [History] Chlorpheniramine Maleate [Chlor-Trimeton] 4 mg PO Q4H PRN 01/08/25 [History] Fluticasone/Umeclidin/Vilanter [Trelegy Ellipta 100-62.5-25] 1 puff INHALATION RT-DAILY 01/08/25 [History] Ibuprofen [Motrin Ib] 600 mg PO Q6H PRN 01/08/25 [History] LORazepam [Ativan] 1 - 2 mg PO Q4H PRN 01/08/25 [History] Loperamide HCl [Imodium A-D] 4 mg PO QID PRN 01/08/25 [History] Mag Hydrox/Aluminum Hyd/Simeth [Mylanta Maximum Strength Liq] 30 ml PO Q4H PRN 01/08/25 [History] Methadone HCl [Methadone Intensol] 90 mg PO DAILY 01/08/25 [History] Mirtazapine [Remeron] 45 mg PO HS 01/08/25 [History] Multivitamins, Thera [Multivitamin (formulary)] 1 tab PO DAILY 01/08/25 [History] Tamsulosin [Flomax] 0.4 mg PO DAILY 01/08/25 [History] Thiamine [Vitamin B-1] 100 mg PO DAILY 01/08/25 [History] Venlafaxine HCl ER [Effexor XR] 150 mg PO DAILY 01/08/25 [History] cloNIDine HCL [Catapres] 0.1 - 0.3 mg PO Q4H PRN 01/08/25 [History] lisinopriL [Zestril] 10 mg PO DAILY 01/08/25 [History] ondansetron HCL [Zofran] 8 mg PO Q6H PRN 01/08/25 [History] Acetaminophen Tab [Tylenol] 650 mg PO Q6HR PRN tab 01/11/25 [Rx] Azithromycin [Zithromax Z Pack] 1 tab PO DIRECTED #6 tab 01/11/25 [Rx] Gabapentin [Neurontin] 600 mg PO TID #18 cap 01/11/25 [Rx] Ipratropium-Albuterol Nebulize [Duoneb 0.5 mg-3 mg/3 ml Soln] 3 ml INHALATION RT-QID PRN each 01/11/25 [Rx] Pantoprazole [Protonix] 40 mg PO AC-BRKFST #30 tab 01/11/25 [Rx] Triamcinolone 0.5% Cream [Kenalog 0.5% Cream] 1 applic TOPICAL BID #1 tub 01/11/25 [Rx] predniSONE See Taper PO DIRECTED #30 tab 01/11/25 [Rx] Follow up Appointment(s)/Referral(s): None,Stated [Primary Care Provider] - 1-2 days (Please call a primary care provider for follow-up appointment.) Discharge Disposition: HOME SELF-CARE
[2025-01-11] MEDS ORDERED: TRIAMCINOLONE ACET 0.5% CREAM 15 GM TUBE TOPICAL SCH (21:00)
== END 2025-01-11 12:13 | disposition home or self-care (01) | DRG 133 ==
LOC: EC 10:21 → 4SSUR 15:26
PROVIDERS: ADMIT Student in an Organized Health Care Education/Training Program; ATTEND Student in an Organized Health Care Education/Training Program
DX: J96.21 Acute and chronic respiratory failure with hypoxia (principal); J44.1 Chronic obstructive pulmonary disease with (acute) exacerbation; I10 Essential (primary) hypertension; E78.5 Hyperlipidemia, unspecified; N40.0 Benign prostatic hyperplasia without lower urinary tract symptoms; L40.9 Psoriasis, unspecified; G93.40 Encephalopathy, unspecified; F10.20 Alcohol dependence, uncomplicated; F17.200 Nicotine dependence, unspecified, uncomplicated; G89.29 Other chronic pain; N20.0 Calculus of kidney; D64.9 Anemia, unspecified; D69.6 Thrombocytopenia, unspecified; G47.00 Insomnia, unspecified; R60.9 Edema, unspecified; D72.829 Elevated white blood cell count, unspecified; R65.10 Systemic inflammatory response syndrome (SIRS) of non-infectious origin without acute organ dysfunction; E87.29 Other acidosis; Z20.828 Contact with and (suspected) exposure to other viral communicable diseases; Z91.018 Allergy to other foods; Z79.891 Long term (current) use of opiate analgesic
CPT/HCPCS: 36415; 36600; 71045; 71046; 80048; 80053; 80306; 80320; 81003; 82803; 82805; 83605; 83735; 84100; 84145; 84484; 85025; 85610; 85730; 87636; 93005; 94640; 94760; 96374; 96376; 99285